=== PATIENT | female | born 1995 ===

== ENCOUNTER → 2019-09-22 07:38 | Outpatient (CLI) | payer OTHER, SELFPAY ==
--- NOTE | ~2019-09-22 | MR_ITS ---
EXAMINATION: MR lumbar spine wo [facility] EXAM DATE: 09/22/2019 08:23 INDICATION: Low back pain for 3 months. Not responding to conservative therapy. TECHNIQUE: Multi-sequential, multiplanar MR images of the lumbar spine were obtained without contrast . Sagittal T1, T2, T2 fat saturation images. Axial T2 weighted images. There is no prior study for comparison. FINDINGS: The vertebral bodies are aligned in the AP dimension. Congenitally narrow L5-S1 disc height . The conus medullaris terminates at the T12-L1 level and has normal signal intensity and morphology. There are no suspicious marrow signal abnormalities. Paraspinal soft tissue is unremarkable. Level by level evaluation: T12-L1: Disc does not extend beyond the endplate margin. Facet arthropathy: None. Neural foraminal stenosis: No stenosis. Central canal stenosis: No stenosis. L1-L2: Disc does not extend beyond the endplate margin. Facet arthropathy: Mild. Neural foraminal stenosis: No stenosis. Central canal stenosis: No stenosis. L2-L3: Disc does not extend beyond the endplate margin. Facet arthropathy: Mild. Neural foraminal stenosis: No stenosis. Central canal stenosis: No stenosis. L3-L4: Disc does not extend beyond the endplate margin. Facet arthropathy: Mild. Neural foraminal stenosis: No stenosis. Central canal stenosis: No stenosis. L4-L5: Disc does not extend beyond the endplate margin. Facet arthropathy: Mild. Neural foraminal stenosis: No stenosis. Central canal stenosis: No stenosis. L5-S1: There is a mild diffuse disc bulge. Facet arthropathy: Mild. Neural foraminal stenosis: No stenosis. Central canal stenosis: No stenosis. IMPRESSION: 1. Mild lumbar facet arthropathy. No stenosis. Reviewed, dictated and finalized at location B. [employer]
== END ==
DX: M54.5 Low back pain (principal)
CPT/HCPCS: 72148